=== PATIENT | male | born 1970 | race Caucasian/White ===

== ENCOUNTER 2022-05-18 12:44 | Emergency (ER) | payer MEDICAID ==
[~2022-05-18] VITALS: Ht 180.3 cm; Wt 86.4 kg
[2022-05-18] MEDS ORDERED: ATI1T PO (13:52)
[2022-05-18] MEDS ORDERED: ONDA4TAB12 PO (13:52)
[2022-05-18 14:17] VITALS: BP 132/87
== END 2022-05-18 14:19 | disposition home or self-care (01) ==
LOC: ER 12:44
DX: Z00.8 Encounter for other general examination (principal); F17.200 Nicotine dependence, unspecified, uncomplicated; Z72.89 Other problems related to lifestyle; Z79.899 Other long term (current) drug therapy
CPT/HCPCS: 99283

== ENCOUNTER 2022-07-31 18:12 | Emergency (ER) | payer MEDICAID ==
[~2022-07-31] VITALS: Ht 180.3 cm; Wt 80.0 kg
[~2022-07-31 18:12] MED LIST: ATI1T PO; ONDA4TAB12 PO
[2022-07-31 18:24] VITALS: BP 111/73
--- NOTE | 2022-07-31 19:15 | NUR ---
SECURITY STAND BY WHILE PT IS WAITING FOR D/C PAPERWORK. PER PT HE IS REFUSING TRANSPORTATION.
== END 2022-07-31 19:26 | disposition home or self-care (01) ==
LOC: ER 18:13
DX: F10.90 Alcohol use, unspecified, uncomplicated (principal); J43.9 Emphysema, unspecified; Z79.899 Other long term (current) drug therapy
CPT/HCPCS: 82948; 99284

== ENCOUNTER 2022-08-02 03:11 | Emergency (ER) | payer MEDICAID ==
[~2022-08-02] VITALS: Ht 180.3 cm; Wt 86.4 kg
[2022-08-02 03:22] VITALS: BP 147/88
[2022-08-02] MEDS ORDERED: ONDA4TAB12 PO (09:04)
[2022-08-02] MEDS ORDERED: GABA100C PO (09:04)
[2022-08-02] MEDS ORDERED: LORA-269 PO (09:04)
== END 2022-08-02 09:16 | disposition home or self-care (01) ==
LOC: ER 03:11
DX: F10.180 Alcohol abuse with alcohol-induced anxiety disorder (principal); Y90.9 Presence of alcohol in blood, level not specified; J43.9 Emphysema, unspecified; Z79.899 Other long term (current) drug therapy
CPT/HCPCS: 99283

== ENCOUNTER 2022-10-02 14:14 | Emergency (ER) | payer MEDICAID ==
[~2022-10-02] VITALS: Ht 182.9 cm; Wt 86.0 kg
[~2022-10-02 14:14] MED LIST changes: +GABA100C PO; +LORA-269 PO
[2022-10-02 14:22] VITALS: BP 106/76
[2022-10-02] MEDS ORDERED: cephalexin 500mg capsule PO ONE (16:05)
[2022-10-02] MEDS ORDERED: bacitracin 15gm ointment TP ONE (16:05)
[2022-10-02] MEDS ORDERED: CEPH-585 PO (16:09)
== END 2022-10-02 16:34 | disposition home or self-care (01) ==
LOC: ER 14:14
DX: L53.9 Erythematous condition, unspecified (principal); Z79.899 Other long term (current) drug therapy
CPT/HCPCS: 99283

== ENCOUNTER 2022-11-27 10:51 | Emergency (ER) | payer MEDICAID ==
[~2022-11-27] VITALS: Ht 182.9 cm; Wt 86.4 kg
[~2022-11-27 10:51] MED LIST changes: +CEPH-585 PO
[2022-11-27 12:10] VITALS: BP 123/78
[2022-11-27] MEDS ORDERED: CEPH-585 PO (14:13)
[2022-11-27] MEDS ORDERED: cephalexin 500mg capsule PO ONE (14:15)
== END 2022-11-27 14:59 | disposition home or self-care (01) ==
LOC: ER 10:51
DX: L03.116 Cellulitis of left lower limb (principal)
CPT/HCPCS: 99284

== ENCOUNTER 2023-01-04 10:45 | Emergency (ER) | payer MEDICAID ==
[~2023-01-04] VITALS: Ht 172.7 cm; Wt 84.0 kg
[2023-01-04] MEDS ORDERED: diphenhydrAMINE 50 mg/ml inj IM ONE (10:55)
[2023-01-04] MEDS ORDERED: haloperidol lactate 5mg/ml inj IM ONE (10:55)
[2023-01-04 10:59] VITALS: BP 123/78
== END 2023-01-04 11:30 ==
LOC: ER 10:46
DX: F10.129 Alcohol abuse with intoxication, unspecified (principal); Z02.89 Encounter for other administrative examinations; Y90.9 Presence of alcohol in blood, level not specified
CPT/HCPCS: 99283

== ENCOUNTER 2023-02-16 21:21 | Emergency (ER) | payer MEDICAID ==
[~2023-02-16] VITALS: Ht 182.9 cm; Wt 88.0 kg
[2023-02-16 22:02] VITALS: BP 121/75; PULSE 103; RESP 16; TEMP 98.5; O2SAT 96
[2023-02-16] MEDS ORDERED: TETanus/Pertussis (Acell)/Diphther VAC/PF (Tdap-Adult) 0.5ml syringe IMVAC ONE (23:20)
[2023-02-16] MEDS ORDERED: LIDOcaine 1% W/epiNEPHrine 1:200,000 10ml vial IJ ONE (23:20)
[2023-02-16] MEDS ORDERED: LIDOcaine 1% W/epiNEPHrine 1:100,000 20ml vial IJ ONE (23:25)
[2023-02-17] MEDS ORDERED: ibuprofen tablet 400 MG TABLET PO ONE (00:25)
== END 2023-02-17 00:47 | disposition home or self-care (01) ==
LOC: ER 21:22
DX: S01.01XA Laceration without foreign body of scalp, initial encounter (principal); J43.9 Emphysema, unspecified; I10 Essential (primary) hypertension; Z79.899 Other long term (current) drug therapy
CPT/HCPCS: 12002; 70450; 90471; 90715; 99285

== ENCOUNTER 2023-02-25 21:57 | Emergency (ER) | payer MEDICAID ==
[~2023-02-25] VITALS: Ht 182.9 cm; Wt 81.4 kg
[2023-02-25 22:13] VITALS: BP 127/85; PULSE 96; RESP 18; TEMP 97.9; O2SAT 96
--- NOTE | 2023-02-26 02:48 | NUR ---
REMOVED 9 LACEY FROM THE POSTERIOR HEAD OF PT REQUESTED BY MD AMAYA.
== END 2023-02-26 02:54 | disposition home or self-care (01) ==
LOC: ER 21:58
DX: S01.01XD Laceration without foreign body of scalp, subsequent encounter (principal); J43.9 Emphysema, unspecified; F17.200 Nicotine dependence, unspecified, uncomplicated; Z72.89 Other problems related to lifestyle; Z79.2 Long term (current) use of antibiotics; Z79.899 Other long term (current) drug therapy; Z48.02 Encounter for removal of sutures; X58.XXXD Exposure to other specified factors, subsequent encounter
CPT/HCPCS: 99281

== ENCOUNTER 2023-11-17 13:50 | Emergency (ER) | payer MEDICAID ==
[~2023-11-17] VITALS: Ht 182.9 cm; Wt 91.1 kg
[2023-11-17 14:11] VITALS: BP 120/75
[2023-11-17] MEDS ORDERED: PERM60CR19 TOP (14:39)
[2023-11-17 14:48] VITALS: PULSE 89; RESP 16; TEMP 97.7; O2SAT 99
== END 2023-11-17 14:49 | disposition home or self-care (01) ==
LOC: ER 13:51
DX: B86 Scabies (principal); Z79.2 Long term (current) use of antibiotics; Z79.899 Other long term (current) drug therapy
CPT/HCPCS: 99282